=== PATIENT | male | born 1950 | race Native Hawaiian/Other Pacific Islander ===

== ENCOUNTER 2016-11-27 09:06 | Outpatient (CLI) | payer OTHER ==
[2016-11-27 10:13] LABS: PLATELET COUNT 176 K/uL (142-355)
[2016-11-27 10:33] LABS: POTASSIUM 3.6 mmol/L (3.6-5.2); SODIUM 137 mmol/L (136-145)
== END 2016-11-27 19:21 | disposition home or self-care (01) ==
LOC: LABW 09:06
PROVIDERS: Nurse Practitioner
DX: I10 Essential (primary) hypertension (principal); R73.9 Hyperglycemia, unspecified; E55.9 Vitamin D deficiency, unspecified; R53.83 Other fatigue; E78.00 Pure hypercholesterolemia, unspecified; R97.20 Elevated prostate specific antigen [PSA]
CPT/HCPCS: 36415; 80053; 80061; 82306; 83036; 84153; 84443; 85027

== ENCOUNTER 2017-07-27 02:49 | Emergency (ER) | payer OTHER ==
[~2017-07-27] VITALS: Ht 180.3 cm; Wt 72.6 kg
[2017-07-27 04:42] VITALS: BP 146/77; TEMP 98
== END 2017-07-27 04:47 | disposition home or self-care (01) ==
LOC: ED 02:49
PROC: 0HQ1XZZ Repair Face Skin, External Approach (ICD-10-PCS; principal; 2017-07-27)
DX: S01.21XA Laceration without foreign body of nose, initial encounter (principal); S01.411A Laceration without foreign body of right cheek and temporomandibular area, initial encounter; W22.8XXA Striking against or struck by other objects, initial encounter; Y92.098 Other place in other non-institutional residence as the place of occurrence of the external cause
CPT/HCPCS: 96372; 99283; J0696

== ENCOUNTER 2017-08-06 15:06 | Emergency (ER) | payer OTHER ==
[~2017-08-06] VITALS: Ht 177.8 cm; Wt 77.1 kg
[2017-08-06 15:06] VITALS: TEMP 98.6
[2017-08-06 15:50] VITALS: BP 136/84
== END 2017-08-06 15:25 | disposition home or self-care (01) ==
LOC: ED 15:06
DX: Z48.02 Encounter for removal of sutures (principal)

== ENCOUNTER 2017-12-20 14:38 | Outpatient (CLI) | payer OTHER | END 2017-12-20 23:02 | disposition home or self-care (01) | LOC: RAD 14:38 | DX: J44.1 Chronic obstructive pulmonary disease with (acute) exacerbation (principal) ==

== ENCOUNTER 2019-04-24 12:18 | Outpatient (CLI) | payer OTHER ==
[2019-04-24] MEDS ORDERED: LAMOTRIGINE200 MG PO ×2 (18:45)
[2019-04-24] MEDS ORDERED: CARV12.5 PO (18:48)
[2019-04-24] MEDS ORDERED: AMLODIPINE BESYLATE PO (18:48)
[2019-04-24] MEDS ORDERED: EDLUAR10 MG PO (18:54)
[2019-04-24] MEDS ORDERED: TAMS0.4C PO (19:00)
[2019-04-24] MEDS ORDERED: MECLIZINE25 MG PO (19:01)
[2019-04-24] MEDS ORDERED: DRISDOL50000 UNIT PO (19:04)
[2019-04-24] MEDS ORDERED: VIRTUSSIN A/C 11 SOL PO (19:05)
[2019-04-24] MEDS ORDERED: FLONASE AL50 MCG/ACT NAS (19:06)
[2019-04-24] MEDS ORDERED: BEVESPI AEROSPH1 AER INH (19:10)
[2019-04-24] MEDS ORDERED: BISACODYL5 M1 PO (19:12)
== END 2019-04-24 12:20 | disposition short-term general hospital (02) ==
LOC: AMB 12:18
DX: R42 Dizziness and giddiness (principal); R11.2 Nausea with vomiting, unspecified; R53.1 Weakness; W18.30XA Fall on same level, unspecified, initial encounter; Y93.89 Activity, other specified; Y92.018 Other place in single-family (private) house as the place of occurrence of the external cause
CPT/HCPCS: A0425; A0427

== ENCOUNTER 2019-05-12 14:55 | Outpatient (CLI) | payer OTHER ==
[~2019-05-12 14:55] MED LIST: AMLODIPINE BESYLATE PO; BEVESPI AEROSPH1 AER INH; BISACODYL5 M1 PO; CARV12.5 PO; DRISDOL50000 UNIT PO; EDLUAR10 MG PO; FLONASE AL50 MCG/ACT NAS; LAMOTRIGINE200 MG PO; MECLIZINE25 MG PO; TAMS0.4C PO; VIRTUSSIN A/C 11 SOL PO
[2019-05-12 15:16] LABS: PLATELET COUNT 201 K/uL (142-355)
[2019-05-12 15:50] LABS: POTASSIUM 3.4 mmol/L (3.6-5.2)
== END 2019-05-12 21:16 | disposition home or self-care (01) ==
LOC: LABW 14:55
PROVIDERS: Nurse Practitioner
DX: D64.89 Other specified anemias (principal); E87.6 Hypokalemia; E53.8 Deficiency of other specified B group vitamins; D64.9 Anemia, unspecified
CPT/HCPCS: 36415; 80048; 82607; 82728; 83550; 85027

== ENCOUNTER 2022-05-09 14:26 | Emergency (ER) | payer OTHER ==
[~2022-05-09] VITALS: Ht 177.8 cm; Wt 80.7 kg
[2022-05-09 14:46] VITALS: TEMP 98.6
[2022-05-09 16:05] LABS: PLATELET COUNT 179 K/uL (142-355)
[2022-05-09 16:12] LABS: POTASSIUM 2.7 mmol/L (3.6-5.2)
[2022-05-09 17:15] VITALS: BP 149/85
== END 2022-05-09 17:27 | disposition home or self-care (01) ==
LOC: ED 14:26
PROVIDERS: Emergency Medicine
DX: E86.0 Dehydration (principal); U07.1 COVID-19; E87.6 Hypokalemia
CPT/HCPCS: 80053; 85027; 96360; 96374; 99284

== ENCOUNTER 2022-05-28 14:40 | Outpatient (CLI) | payer OTHER | END 2022-05-28 19:53 | disposition home or self-care (01) | LOC: RAD 14:40 | PROVIDERS: ATTEND Internal Medicine | DX: R05.3 Chronic cough (principal); R06.02 Shortness of breath ==

== ENCOUNTER 2023-01-15 15:49 | Outpatient (CLI) | payer OTHER | END 2023-01-15 22:47 | disposition home or self-care (01) | LOC: RAD 15:49 | PROVIDERS: ATTEND Internal Medicine | DX: J40 Bronchitis, not specified as acute or chronic (principal); J44.9 Chronic obstructive pulmonary disease, unspecified ==

== ENCOUNTER 2023-07-03 14:43 | Outpatient (CLI) | payer OTHER | END 2023-07-03 19:30 | disposition home or self-care (01) | LOC: RAD 14:43 | PROVIDERS: ATTEND Internal Medicine Critical Care Medicine | DX: J44.9 Chronic obstructive pulmonary disease, unspecified (principal) ==